=== PATIENT | female | born 1995 | race Hispanic/Latino ===

== ENCOUNTER 2022-03-10 21:13 | Emergency (ER) | payer SELFPAY ==
[~2022-03-10] VITALS: Ht 162.6 cm; Wt 73.5 kg
[2022-03-10] MEDS ORDERED: DIPHENHYDRAMINE HCL 25 MG CAP PO ONE (22:00)
[2022-03-10] MEDS ORDERED: ONDANSETRON HCL 4 MG ORAL DISINTEGRATING TAB PO ONE (22:00)
[2022-03-10] MEDS ORDERED: ONDANSETRON ODT4 MG PO (22:21)
[2022-03-10] MEDS ORDERED: CHLORDIAZEPOXID25 MG PO (22:21)
[2022-03-10] MEDS ORDERED: OMEPRAZOLE40 MG PO (22:21)
[2022-03-10 22:45] VITALS: BP 108/72
== END 2022-03-10 22:45 | disposition home or self-care (01) ==
LOC: FSED 21:24
DX: F41.9 Anxiety disorder, unspecified (principal)
CPT/HCPCS: 80307; 81003; 81025; 99282; Q0162